=== PATIENT | female | born 1990 | race Caucasian/White ===

== ENCOUNTER 2024-04-30 10:49 | Day surgery (SDC) | payer BC ==
[~2024-04-30 10:49] MED LIST: Sodium Chloride 0.9% 10 ML Syringe FLUSH PRN; Sodium Chloride 0.9% 2.5 ML Syringe FLUSH PRN; Sodium Chloride 0.9% 20 ML SDV IV PRN
[2024-04-30] MEDS ORDERED: propofoL 500 MG/50 ML 50 ML ONE (10:53)
[2024-04-30] MEDS ORDERED: Dexamethasone 4 MG/ML 5 ML MDV ONE (10:58)
[2024-04-30] MEDS: Lactated Ringers 1,000 ML IV SCH (11:17)
[2024-04-30] MEDS ORDERED: Midazolam 1 MG/ML 2 ML SDV ONE (11:18)
== END 2024-04-30 12:40 | disposition home or self-care (01) ==
LOC: MW.SDS 10:49
PROVIDERS: ATTEND Surgery
DX: Z12.11 Encounter for screening for malignant neoplasm of colon (principal); K62.1 Rectal polyp; I10 Essential (primary) hypertension; F41.9 Anxiety disorder, unspecified; E78.00 Pure hypercholesterolemia, unspecified; F17.290 Nicotine dependence, other tobacco product, uncomplicated; Z79.899 Other long term (current) drug therapy; Z80.0 Family history of malignant neoplasm of digestive organs
CPT/HCPCS: 45380; 81025; J2704; J7120; 00811; J1100